=== PATIENT | male | born 1960 | race Caucasian/White ===

== ENCOUNTER → 2020-03-05 14:08 | Outpatient (BNVA) | payer OTHER, SELFPAY | PROVIDERS: Family Provider Internal Medicine; PCP Internal Medicine; Referring Provider Nurse Practitioner Family; Visit Provider Specialist | DX: M79.604 Pain in right leg (principal); M79.605 Pain in left leg; M79.89 Other specified soft tissue disorders | CPT/HCPCS: 73590 ==

== ENCOUNTER 2020-03-22 08:15 | Outpatient (CLI) | payer OTHER, SELFPAY ==
[2020-03-22 10:51] LABS: Basophils % 0.5 %; Eosinophils # 0.2 10^3/uL (0.0-0.8); Eosinophils % 2.8 %; Hematocrit 44.3 % (42.0-52.0); Lymphocytes # 2.2 10^3/uL (0.8-4.8); Lymphocytes % 33.9 %; Mean Corpuscular HGB Conc 33.9 g/dL (30.0-36.0); Mean Corpuscular Hemoglobin 30.4 pg (28.0-34.0); Mean Corpuscular Volume 89.7 fL (80-94); Mean Platelet Volume 10.4 fL (7.4-10.4); Monocytes # 0.5 10^3/uL (0.2-0.9); Monocytes % 8.2 %; Neutrophils # 3.47 10^3/uL (1.8-7.7); Neutrophils % 53.8 %; Nucleated Red Blood Cells % 0 %; Platelet Count 209 10^3/cmm (130-400); Red Blood Count 4.94 10^6/uL (4.1-5.3); Red Cell Distribution Width 12.7 % (12.1-15.1); White Blood Count 6.4 10^3/uL (4.0-10.0)
[2020-03-22 11:09] LABS: Estmated Average Glucose 157; Hemoglobin A1C 7.1 % (4.0-6.0)
[2020-03-22 11:24] LABS: 25 Hydroxy Vitamin D 19 ng/mL (30-100); Alanine Aminotransferase 31 U/L (0-41); Albumin Level 4.5 g/dL (3.5-5.2); Alkaline Phosphatase 81 IU/L (40-130); Anion Gap 15.5 (5-19); Aspartate Amino Transferase 29 U/L (0-40); Blood Urea Nitrogen 14 mg/dL (6-20); Calcium 9.5 mg/dL (8.5-10.5); Carbon Dioxide 27 mmol/L (22-29); Chloride 102 mmol/L (98-107); Globulin 3.4 g/dL (1.3-4.6); Glomerular Filtration Rate 76.5 mL/min (90-130); Glucose 138 mg/dL (65-115); Osmolality Calculated 293 mOsm/kg (285-295); Potassium 4.5 mmol/L (3.5-5.1); Sodium 140 mmol/L (136-145); Total Bilirubin 0.3 mg/dL (0.15-1.2); Total Protein 7.9 g/dL (6.6-8.7); Vitamin B12 323 pg/mL (232-1245)
[2020-03-22 11:55] LABS: Erythrocyte Sedimentation Rate 17 mm/hr (0-10)
== END 2020-03-22 08:16 | disposition home or self-care (01) ==
PROVIDERS: PCP Internal Medicine; Visit Provider Nurse Practitioner Family
DX: L97.822 Non-pressure chronic ulcer of other part of left lower leg with fat layer exposed (principal)
CPT/HCPCS: 11042; 36415; 80053; 82306; 82607; 83036; 85025; 85651; G0463

== ENCOUNTER 2020-03-29 08:55 | Outpatient (CLI) | payer OTHER, SELFPAY | END 2020-03-29 08:56 | disposition home or self-care (01) | LOC: WOUND 08:55 | PROVIDERS: PCP Internal Medicine; Visit Provider Nurse Practitioner Family | DX: E11.622 Type 2 diabetes mellitus with other skin ulcer (principal); L97.822 Non-pressure chronic ulcer of other part of left lower leg with fat layer exposed | CPT/HCPCS: 11042; 87070; 87075; 87077; 87186; 87205 ==

== ENCOUNTER 2020-03-30 06:50 | Outpatient (CLI) | payer OTHER, SELFPAY ==
--- NOTE | 2020-03-30 07:01 | US_ITS ---
WS: [id number] ULTRASOUND SOFT TISSUES anterior LEFT tibia. HISTORY: Abscess, nonhealing ulcer. COMPARISON: None available. TECHNIQUE: 2-D and color Doppler imaging is submitted. Ultrasound directed over the anterior LEFT tibia in the area of the ulcer There is an ulceration tract with edema. Nonformed inflammatory collection with only mild increased v ascularity. There is a tract extending towards the surface. There is also packing material within the ulceration with shadowing. Collection measures 5.8 x 2.8 cm. US/US soft tissue/extremity [id number] IMPRESSION: Phlegmonous collection over the anterior tibia. No well formed abscess.
--- NOTE | 2020-03-30 07:02 | USCV_ITS ---
Paramjit Tapia Age: 60 Gender: M : 1960 Exam Date: 03/30/2020 06:18 Ordering Phys: Alyce Diana Technologist: Haley Bryant Exam Location: [facility] [place]_ Indication: HISTORY: Injury to Lt ant Tibia with opened draining wounds (2) PROCEDURES: Venous duplex imaging was performed in bilateral lower extremities. The following venous structures were evaluated: common femoral vein, the greater saphenous vein, femoral vein, and the popliteal vein and ptvsserial compression, augmentation maneuvers, and spectral Doppler flow evaluation were performed. Bilateral duplex Venous Insufficiency study of the Deep and Superficial systems was carried out according to normal protocol with the patient in supine positon for deep system and dependent position for the superficial system. . FINDINGS: Lt Pop vein still had non occlusive debris within vessel and reflux. The rest of vessels studied on the lt were free of clot and reflux. Left popliteal vein appears to be partially compressible with echodensities in the circumference of the vessel . the Rt leg has Rt GSV reflux in Proximal section. CONCLUSIONS 1. 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 Significant reflux of greater than 1000 ms was noted in the left popliteal vein. 2. Significant venous reflux of greater than 500 ms(3011 and 2760 milliseconds respectively) were noted in the right greater saphenous vein segments, distal to the saphenofemoral junction and in the proximal segment. The segments were at 1.3 and 1.43 cm deep from the surface and measuring 0.44 and 0.41 cm in diameter. 3. No other significant reflux were noted. 4. The venous dimensions and the depth from the surface are as mentioned above Dr Olga Lidia Reyes MD [facility] (Electronically Signed) Final Date: 30 March 2020 15:27 S
== END 2020-03-30 06:51 | disposition home or self-care (01) ==
LOC: RAD 06:52
PROVIDERS: PCP Internal Medicine; Visit Provider Nurse Practitioner Family
DX: L98.499 Non-pressure chronic ulcer of skin of other sites with unspecified severity (principal)
CPT/HCPCS: 76882; 93970

== ENCOUNTER 2020-03-30 13:04 | Outpatient (CLI) | payer OTHER, SELFPAY | END 2020-03-30 13:05 | disposition home or self-care (01) | LOC: WOUND 13:05 | PROVIDERS: PCP Internal Medicine; Visit Provider Surgery | DX: E11.622 Type 2 diabetes mellitus with other skin ulcer (principal); L97.822 Non-pressure chronic ulcer of other part of left lower leg with fat layer exposed | CPT/HCPCS: 11042 ==

== ENCOUNTER 2020-04-03 07:42 | Outpatient (CLI) | payer OTHER, SELFPAY ==
--- NOTE | 2020-04-03 07:51 | USCV_ITS ---
Paramjit Tapia Age: 60 Gender: M : 1960 Exam Date: 04/03/2020 07:47 Ordering Phys: Alyce Diana Technologist: Eleni Randall Exam Location: [facility] [place]_ Indication: PAIN REDNESS NON HEALING ULCER RIGHT LEFT Brachial 161.00 mmHg Brachial 155.00 mmHg Pressure (mmHg) Waveform Pressure (mmHg) Waveform 190.00 Above Knee 175.00 177.00 Below Knee 171.00 190.00 [employer] 196.00 163.00 DPA 183.00 1.10 Ankle/Brachial Index 1.01 177.00 Pre-Exercise Toe Pressure 163.00 Pre-Exercise Toe/Brachial Index 1.01 1.10 FINDINGS Normal resting ABIs bilaterally Normal resting TBI bilaterally Normal PVR waveforms CONCLUSIONS No evidence of any significant arterial obstruction, based on the above findings. Dr Olga Lidia Reyes MD [facility] (Electronically Signed) Final Date: 03 April 2020 18:06 S
== END 2020-04-03 07:43 | disposition home or self-care (01) ==
LOC: RAD 07:45
PROVIDERS: PCP Internal Medicine; Visit Provider Nurse Practitioner Family
DX: M79.604 Pain in right leg (principal); M79.605 Pain in left leg; L53.9 Erythematous condition, unspecified; L97.929 Non-pressure chronic ulcer of unspecified part of left lower leg with unspecified severity; L97.919 Non-pressure chronic ulcer of unspecified part of right lower leg with unspecified severity
CPT/HCPCS: 93923

== ENCOUNTER 2020-04-05 09:03 | Outpatient (CLI) | payer OTHER, SELFPAY | END 2020-04-05 09:04 | disposition home or self-care (01) | LOC: WOUND 09:04 | PROVIDERS: PCP Internal Medicine; Visit Provider Nurse Practitioner Family | DX: E11.622 Type 2 diabetes mellitus with other skin ulcer (principal); L97.822 Non-pressure chronic ulcer of other part of left lower leg with fat layer exposed | CPT/HCPCS: 11042; A6545 ==

== ENCOUNTER 2020-04-17 14:31 | Outpatient (CLI) | payer OTHER, SELFPAY ==
--- NOTE | 2020-04-17 14:30 | MR_ITS ---
WS: [id number] MRI LEFT LOWER EXTREMITY with and without CONTRAST. COMPARISON: None Multiplanar, multisequence imaging is performed with and without contrast. Superficial soft tissue ulceration measures 3.2 cm in length by 2.4 cm. There is soft tissue thickeni ng and mild edema. There is no abscess. There is soft tissue thickening along the fascial planes and a small amount of edema. No focal enhancing collection. The ulceration extends 1.0 cm deep. There is no marrow edema or osteomyelitis. MR/MR lower leg LT wo/w con [id number] IMPRESSION: Focal soft tissue ulceration with no abscess or osteomyelitis over the proximal tibia. Small amount of edema
[2020-04-17] MEDS: gadobenate dimeglumine 20 mL vial IV (16:48)
== END 2020-04-17 14:32 | disposition home or self-care (01) ==
LOC: RADWPI 14:32
PROVIDERS: PCP Internal Medicine; Visit Provider Surgery
DX: M79.662 Pain in left lower leg (principal); L53.9 Erythematous condition, unspecified; L97.829 Non-pressure chronic ulcer of other part of left lower leg with unspecified severity; R60.0 Localized edema
CPT/HCPCS: 73720; A9577

== ENCOUNTER 2020-04-23 09:47 | Outpatient (CLI) | payer OTHER, SELFPAY | END 2020-04-23 09:48 | disposition home or self-care (01) | LOC: WOUND 09:48 | PROVIDERS: PCP Internal Medicine; Visit Provider Nurse Practitioner Family | DX: E11.622 Type 2 diabetes mellitus with other skin ulcer (principal); L97.822 Non-pressure chronic ulcer of other part of left lower leg with fat layer exposed | CPT/HCPCS: 11042 ==

== ENCOUNTER 2020-04-25 13:27 | Outpatient (CLI) | payer OTHER, SELFPAY | END 2020-04-25 13:28 | disposition home or self-care (01) | LOC: WOUND 13:27 | PROVIDERS: PCP Internal Medicine; Visit Provider Thoracic Surgery (Cardiothoracic Vascular Surgery) | DX: L97.822 Non-pressure chronic ulcer of other part of left lower leg with fat layer exposed (principal) | CPT/HCPCS: 99212 ==

== ENCOUNTER 2020-04-30 09:50 | Outpatient (CLI) | payer OTHER, SELFPAY | END 2020-04-30 09:51 | disposition home or self-care (01) | LOC: WOUND 09:51 | PROVIDERS: PCP Internal Medicine; Visit Provider Nurse Practitioner Family | DX: E11.622 Type 2 diabetes mellitus with other skin ulcer (principal); L97.822 Non-pressure chronic ulcer of other part of left lower leg with fat layer exposed | CPT/HCPCS: 11042 ==

== ENCOUNTER 2020-05-07 10:15 | Outpatient (CLI) | payer OTHER, SELFPAY | END 2020-05-07 10:16 | disposition home or self-care (01) | LOC: WOUND 10:16 | PROVIDERS: PCP Internal Medicine; Visit Provider Nurse Practitioner Family | DX: E11.622 Type 2 diabetes mellitus with other skin ulcer (principal); L97.822 Non-pressure chronic ulcer of other part of left lower leg with fat layer exposed | CPT/HCPCS: 11042 ==

== ENCOUNTER 2020-05-14 09:13 | Outpatient (CLI) | payer OTHER, SELFPAY | END 2020-05-14 09:14 | disposition home or self-care (01) | LOC: WOUND 09:13 | PROVIDERS: PCP Internal Medicine; Visit Provider Nurse Practitioner Family | DX: E11.622 Type 2 diabetes mellitus with other skin ulcer (principal); L97.822 Non-pressure chronic ulcer of other part of left lower leg with fat layer exposed | CPT/HCPCS: 97597 ==

== ENCOUNTER 2020-05-21 10:09 | Outpatient (CLI) | payer OTHER, SELFPAY | END 2020-05-21 10:10 | disposition home or self-care (01) | LOC: WOUND 10:12 | PROVIDERS: PCP Internal Medicine; Visit Provider Nurse Practitioner Family | DX: E11.622 Type 2 diabetes mellitus with other skin ulcer (principal); L97.822 Non-pressure chronic ulcer of other part of left lower leg with fat layer exposed | CPT/HCPCS: 11042 ==

== ENCOUNTER 2020-05-28 09:47 | Outpatient (CLI) | payer OTHER, SELFPAY | END 2020-05-28 09:48 | disposition home or self-care (01) | LOC: WOUND 09:48 | PROVIDERS: PCP Internal Medicine; Visit Provider Nurse Practitioner Family | DX: E11.622 Type 2 diabetes mellitus with other skin ulcer (principal); L97.822 Non-pressure chronic ulcer of other part of left lower leg with fat layer exposed | CPT/HCPCS: 11042 ==

== ENCOUNTER 2020-06-04 10:23 | Outpatient (CLI) | payer OTHER, SELFPAY | END 2020-06-04 10:24 | disposition home or self-care (01) | LOC: WOUND 10:23 | PROVIDERS: PCP Internal Medicine; Visit Provider Nurse Practitioner Family | DX: Z09 Encounter for follow-up examination after completed treatment for conditions other than malignant neoplasm (principal) | CPT/HCPCS: 99212 ==